=== PATIENT | male | born 2005 | race African-American/Black ===

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

== ENCOUNTER 2024-06-21 18:16 | Emergency (ER) | payer OTHER, SELFPAY ==
[2024-06-21 18:26] VITALS: BP 115/76; PULSE 64; RESP 18; TEMP 37.1; O2SAT 100
--- NOTE | 2024-06-21 18:30 | ED_ITS ---
HPI - General Adult General Chief complaint: Unspecified Stated complaint: Side Pain Time Seen by Provider: 06/21/24 18:30 Source: patient Mode of arrival: ambulatory Limitations: no limitations History of Present Illness HPI narrative: 19 y/o male presented for c/o left lower side pain after injury today at 1500. States while playing baseball, he swung the bat and felt something sharp to the left side when twisting. States he usually swings with both hands, but held the bat in only the left arm at the end of the swing which resulted in the pain. Since then he denies pain at rest, only occurs with firm twisting movement. Denies sob, wheezing, abdominal pain, or urinary complaint. Has not taken anything for pain. He was seen by the team clinical trainer and advised rest. His father wanted evaluation. Related Data Allergies Allergy/AdvReac Type Severity Reaction Status Date / Time No Known Allergies Allergy Verified 06/21/24 18:30 Review of Systems 2 Review of Systems: CONSTITUTIONAL: Denies body aches, fever, chills, or sweats. EYES: Denies visual changes, redness, or discharge. CARDIOVASCULAR: Denies chest pain, palpitations, or edema. RESPIRATORY: Denies cough or dyspnea. GASTROINTESTINAL: Denies abdominal pain, nausea, vomiting, or diarrhea. GENITOURINARY: Denies dysuria or hematuria. SKIN: Denies rash or wounds. MUSCULOSKELETAL: per HPI All systems reviewed & are unremarkable except as noted in HPI and below PMFSH Comments At time of signature, I have reviewed and agree with nursing past medical, surgical, social and family history unless otherwise noted. Please see nursing chart for further information. There is no relevant family history pertinent to the presenting complaint Exam 2 Narrative: GENERAL: Well-appearing ENT: Mucous membranes pink and moist CHEST: No respiratory distress. Clear to auscultation. HEART: Regular rate and rhythm. No murmur appreciated. Normal peripheral pulses. ABDOMEN: Soft, nontender, nondistended, normal active bowel sounds. MUSCULOSKELETAL: Left lower oblique minimally tender with palpation, no bruising. EXTREMITIES: Normal range of motion. No edema. SKIN: Warm, dry, no rash. Capillary refill normal. Normal skin turgor. NEURO: No focal deficits. Alert and oriented x3. Gait steady. PSYCH: Normal affect. Back/Spine/Pelvis: Back/spine/pelvis image: 1. left lower oblique tenderness Course Course Emergency Course: Patient is aware of diagnosis, understands and agrees to treatment plan. Anticipatory guidance given. Patient agrees to follow-up as directed and is aware of reasons to seek care at the emergency department. Portions of this record may have been created with voice recognition software Level of Care: Express Care Visit Vital Signs Vital signs: Vital Signs Temperature 98.8 F 06/21/24 18:26 Pulse Rate 64 06/21/24 18:26 Respiratory Rate 18 06/21/24 18:26 Blood Pressure 115/76 06/21/24 18:26 Pulse Oximetry 64 L 06/21/24 18:26 Oxygen Delivery Room Air 06/21/24 18:26 Temperature 98.8 F 06/21/24 18:26 Pulse Rate 64 06/21/24 18:26 Respiratory Rate 18 06/21/24 18:26 Blood Pressure 115/76 06/21/24 18:26 Pulse Oximetry 64 L 06/21/24 18:26 Oxygen Delivery Room Air 06/21/24 18:26 Medical Decision Making MDM Narrative Medical decision making narrative: Discussed physical exam findings, reviewed Rx. Advised supportive measures and signs/symptoms to go to the ER. Pt is appropriate for outpt treatment and f/u with team clinical trainer. Differential Diagnosis Differential Diagnosis: Rib fracture, contusion, musculoskeletal strain, costochondritis Vital Signs Vital Signs: Vital Signs Temperature 98.8 F 06/21/24 18:26 Pulse Rate 64 06/21/24 18:26 Respiratory Rate 18 06/21/24 18:26 Blood Pressure 115/76 06/21/24 18:26 Pulse Oximetry 64 L 06/21/24 18:26 Oxygen Delivery Room Air 06/21/24 18:26 Temperature 98.8 F 06/21/24 18:26 Pulse Rate 64 06/21/24 18:26 Respiratory Rate 18 06/21/24 18:26 Blood Pressure 115/76 06/21/24 18:26 Pulse Oximetry 64 L 06/21/24 18:26 Oxygen Delivery Room Air 06/21/24 18:26 reviewed Discharge Plan Discharge Clinical Impression: Musculoskeletal pain Patient Disposition: Home, Self-Care Condition: Stable Instructions: Antibiotic Form, Muscle Strain (ED) Additional Instructions: Rest. Avoid pushing, pulling, lifting-- or anything that worsens the symptoms Tylenol 1000mg every 8 hours as needed, You can alternate with ibuprofen 600mg Cyclobenzaprine (Flexeril) is a muscle relaxer. Take it as directed. It can cause drowsiness so do not drive or operate machinery until you know how it makes you feel. Alternate ice/heat to the site. Lidocaine or salon pas pain patch or use pain cream like icy/hot or biofreeze. Do not apply ice/heat over the top of the patch or cream. Patient Language: Gabonese Prescriptions: New cyclobenzaprine 10 mg tablet 10 mg PO TID PRN (Reason: muscle spasm) Qty: 10 0RF methylprednisolone [Medrol (Nadeem)] 4 mg tablets,dose pack See Rx Instructions .ROUTE .COMPLEX Qty: 21 0RF Rx Instructions: orally per package directions Follow-up/Referrals: Uli Miguel MD [Primary Care Provider] - Time of Disposition: 18:44
== END 2024-06-21 18:49 | disposition home or self-care (01) ==
PROVIDERS: Emergency Provider Nurse Practitioner Family; PCP Pediatrics
DX: R10.32 Left lower quadrant pain (principal)
CPT/HCPCS: 99213; G0463